=== PATIENT | female | born 1935 | race Hispanic/Latino ===

== ENCOUNTER 2017-11-17 10:30 | Inpatient (IN) | payer OTHER ==
[~2017-11-17] VITALS: Ht 157.5 cm; Wt 52.2 kg
[2017-11-17 11:08] LABS: BASOPHILS % (AUTO) 0.8 % (0.0-5.0); EOSINOPHILS % (AUTO) 1.3 % (0.0-8.0); HEMATOCRIT 45.2 % (36-48); LYMPHOCYTES % (AUTO) 20.1 % (21.0-51.0); MEAN CORPUSCULAR HEMOGLOBIN 31.5 pg (27.0-33.0); MEAN CORPUSCULAR HGB CONC 33.3 g/dL (32.0-36.0); MEAN CORPUSCULAR VOLUME 94.6 fL (79-99); MONOCYTES % (AUTO) 8.5 % (3.0-13.0); NEUTROPHILS % (AUTO) 69.3 % (40.0-77.0); PLATELET COUNT (AUTO) 255 K/uL (130-400); RED BLOOD CELL COUNT(AUTO) 4.77 MIL/uL (4.00-5.50); RED CELL DISTRIBUTION WIDTH 13.1 % (11.0-15.5); WHITE BLOOD COUNT (AUTO) 10.4 K/uL (4.8-10.8)
[2017-11-17] MEDS ORDERED: KETOROLAC TROMETHAMINE 30MG/ML ONE (11:08)
[2017-11-17] MEDS ORDERED: ONDANSETRON HCL 4 MG/2 ML VIAL ONE (11:08)
[2017-11-17] MEDS ORDERED: MECLIZINE HCL 25 MG TABLET ONE (11:08)
[2017-11-17 11:18] LABS: CREATININE 0.8 mg/dL (0.5-1.5)
[2017-11-17 11:23] LABS: INR 0.94 (0.85-1.15); PROTHROMBIN TIME 9.9 SEC (9.6-11.6)
[2017-11-17 11:29] LABS: ALBUMIN 3.8 g/dL (3.5-5.0); BILIRUBIN,TOTAL 0.8 mg/dL (0.2-1.0); TOTAL PROTEIN, SERUM 8.7 g/dL (6.0-8.3)
[2017-11-17] MEDS ORDERED: SODIUM CHLORIDE 0.9% 50 ML IV ONE (12:22)
[2017-11-17] MEDS ORDERED: CEFTRIAXONE SODIUM 2 GM VIAL ONE (12:22)
[2017-11-17] MEDS ORDERED: SODIUM CHLORIDE 0.9% 1000ML 1,000 ML IV ONE (12:22)
[2017-11-17] MEDS ORDERED: ONDANSETRON ODT 4 MG TAB ONE ×2 (12:36→12:37)
[2017-11-17] MEDS ORDERED: MORPHINE SULFATE 4 MG/1ML SYG IV PRN (14:45)
[2017-11-17] MEDS ORDERED: ACETAMINOPHEN 325 MG TAB PO PRN (14:45)
[2017-11-17] MEDS ORDERED: MORPHINE SULFATE 2 MG/ML 1ML SYG IV PRN (14:45)
[2017-11-17] MEDS ORDERED: ONDANSETRON HCL 4 MG/2 ML VIAL IV PRN (14:45)
[2017-11-17 16:00] VITALS: BP 140/58
[2017-11-17] MEDS: SODIUM CHLORIDE 0.9% 1000ML 1,000 ML IV SCH (17:00)
[2017-11-17] MEDS ORDERED: LEVOFLOXACIN 500 MG/D5W 100 ML 100 ML IV SCH (19:00)
[2017-11-17 20:00] VITALS: BP 153/79
[2017-11-17] MEDS ORDERED: METRONIDAZOLE 500MG/100ML BAG 100 ML ONE (20:56)
[2017-11-17] MEDS: METRONIDAZOLE 500MG/100ML BAG 100 ML IV SCH (22:19)
[2017-11-17] MEDS: ZOSYN 3.375GM+NS 50ML 50 ML IV SCH (23:15)
[2017-11-18 00:38] VITALS: BP 117/70
[2017-11-18 04:14] VITALS: BP 153/77
[2017-11-18] MEDS: SODIUM CHLORIDE 0.9% 1000ML 1,000 ML IV SCH ×2 (04:44→15:50)
[2017-11-18] MEDS: METRONIDAZOLE 500MG/100ML BAG 100 ML IV SCH (05:30)
[2017-11-18 05:57] LABS: BASOPHILS % (AUTO) 1.1 % (0.0-5.0); EOSINOPHILS % (AUTO) 3.6 % (0.0-8.0); HEMATOCRIT 37.1 % (36-48); LYMPHOCYTES % (AUTO) 17.6 % (21.0-51.0); MEAN CORPUSCULAR HGB CONC 32.7 g/dL (32.0-36.0); MEAN CORPUSCULAR VOLUME 94.9 fL (79-99); MONOCYTES % (AUTO) 10.2 % (3.0-13.0); NEUTROPHILS % (AUTO) 67.5 % (40.0-77.0); PLATELET COUNT (AUTO) 225 K/uL (130-400); RED CELL DISTRIBUTION WIDTH 13.3 % (11.0-15.5)
[2017-11-18] MEDS: ZOSYN 3.375GM+NS 50ML 50 ML IV SCH ×2 (06:12→13:00)
[2017-11-18 06:15] LABS: ALBUMIN 2.5 g/dL (3.5-5.0); BILIRUBIN,TOTAL 0.5 mg/dL (0.2-1.0); CREATININE 0.8 mg/dL (0.5-1.5); POTASSIUM 3.8 mmol/L (3.5-5.1); TOTAL PROTEIN, SERUM 6.3 g/dL (6.0-8.3)
[2017-11-18 08:21] VITALS: BP 143/75
[2017-11-18] MEDS ORDERED: ENOXAPARIN SODIUM 40 MG/0.4 ML SYRINGE SQ SCH (09:00)
[2017-11-18] MEDS ORDERED: PANTOPRAZOLE SODIUM 40 MG TABLET.DR PO SCH (09:00)
[2017-11-18] MEDS ORDERED: METRONIDAZOLE 500 MG TABLET PO SCH (11:15)
[2017-11-18 12:30] VITALS: BP 156/70
[2017-11-18 13:02] VITALS: BP 152/59
[2017-11-18] MEDS ORDERED: PANT40TA PO (16:57)
[2017-11-18] MEDS ORDERED: LEVO250T59 PO (16:57)
[2017-11-18] MEDS ORDERED: METR250T4 PO (16:57)
[2017-11-18 17:05] VITALS: BP 137/63
[2017-11-19] MEDS ORDERED: LEVOFLOXACIN 500 MG TABLET PO SCH (09:00)
== END 2017-11-18 20:03 | disposition home or self-care (01) | DRG 392 ==
LOC: EDH 10:30 → EDHIP 14:03 → 3AH 15:29
PROVIDERS: ADMIT Internal Medicine; ATTEND Internal Medicine
PROC: 3E0234Z Introduction of Serum, Toxoid and Vaccine into Muscle, Percutaneous Approach (ICD-10-PCS; principal; 2017-11-17)
DX: K57.32 Diverticulitis of large intestine without perforation or abscess without bleeding (principal); Z23 Encounter for immunization; Z82.5 Family history of asthma and other chronic lower respiratory diseases; Z82.3 Family history of stroke; Z83.3 Family history of diabetes mellitus; Z82.49 Family history of ischemic heart disease and other diseases of the circulatory system
CPT/HCPCS: 36415; 70450; 71045; 74176; 80053; 82550; 83874; 84484; 85025; 85610; 85730; 87040; 93005; C9113; G0008; J0696; J1650; J1885; J1956; J2405; J2543; J3490; J7030; Q2038

== ENCOUNTER 2019-09-27 23:07 | Emergency (ER) | payer MEDICARE, OTHER ==
[~2019-09-27 23:07] MED LIST: LEVO250T59 PO; METR-152 PO; PANT40TA PO
[2019-09-28 00:34] LABS: BASOPHILS % (AUTO) 0.8 % (0.0-5.0); EOSINOPHILS % (AUTO) 0.5 % (0.0-8.0); HEMATOCRIT 45.3 % (36-48); LYMPHOCYTES % (AUTO) 11.7 % (21.0-51.0); MEAN CORPUSCULAR HEMOGLOBIN 31.6 pg (27.0-33.0); MEAN CORPUSCULAR HGB CONC 33.6 g/dL (32.0-36.0); MEAN CORPUSCULAR VOLUME 94.2 fL (79-99); MONOCYTES % (AUTO) 6.1 % (3.0-13.0); NEUTROPHILS % (AUTO) 80.4 % (40.0-77.0); PLATELET COUNT (AUTO) 256 K/uL (130-400); RED BLOOD CELL COUNT(AUTO) 4.81 MIL/uL (4.00-5.50); RED CELL DISTRIBUTION WIDTH 13.6 % (11.0-15.5); WHITE BLOOD COUNT (AUTO) 13.2 K/uL (4.8-10.8)
[2019-09-28 01:04] LABS: CREATININE 0.9 mg/dL (0.5-1.5); POTASSIUM 4.2 mmol/L (3.5-5.1)
[2019-09-28 01:05] LABS: APPEARANCE,URINE Clear (CLEAR); BILIRUBIN,URINE Negative (NEGATIVE); COLOR,URINE Yellow (YELLOW); GLUCOSE, URINE (UA) Negative (NEGATIVE); KETONES,URINE 15 mg/dL (NEGATIVE); LEUKOCYTE ESTERASE ,URINE Negative (NEGATIVE); NITRATE,URINE Negative (NEGATIVE); OCCULT BLOOD,URINE Negative (NEGATIVE); PROTEIN,URINE Negative (NEGATIVE); UROBILINOGEN,URINE 0.2 mg/dL (0.2-1.0)
[2019-09-28 01:08] LABS: ALBUMIN 4.1 g/dL (3.5-5.0); BILIRUBIN,TOTAL 0.9 mg/dL (0.2-1.0); TOTAL PROTEIN, SERUM 7.6 g/dL (6.0-8.3)
[2019-09-28 01:17] LABS: INR 0.92 (0.85-1.15); PARTIAL THROMBOPLASTIN TIME 26.6 SEC (26.3-35.5)
== END 2019-09-28 01:33 | disposition home or self-care (01) ==
LOC: EDH 23:07
DX: S00.83XA Contusion of other part of head, initial encounter (principal); S09.90XA Unspecified injury of head, initial encounter; Z98.890 Other specified postprocedural states; Z72.0 Tobacco use; W18.39XA Other fall on same level, initial encounter; Y93.89 Activity, other specified; Y92.89 Other specified places as the place of occurrence of the external cause; Y99.8 Other external cause status
CPT/HCPCS: 36415; 70450; 71100; 72125; 80053; 81003; 84484; 85025; 85610; 85730; 93005

== ENCOUNTER 2022-05-26 09:59 | Emergency (ER) | payer OTHER ==
[~2022-05-26] VITALS: Ht 154.9 cm; Wt 45.4 kg
[~2022-05-26 09:59] MED LIST changes: -LEVO250T59 PO; +LEVO250T75 PO; -METR-152 PO; +METR-361 PO
[2022-05-26 10:36] LABS: BASOPHILS % (AUTO) 1.9 % (0.0-5.0); EOSINOPHILS % (AUTO) 7.3 % (0.0-8.0); HEMATOCRIT 40.7 % (36-48); LYMPHOCYTES % (AUTO) 25.4 % (21.0-51.0); MEAN CORPUSCULAR HEMOGLOBIN 31.4 pg (27.0-33.0); MEAN CORPUSCULAR HGB CONC 32.7 g/dL (32.0-36.0); MONOCYTES % (AUTO) 7.9 % (3.0-13.0); PLATELET COUNT (AUTO) 252 K/uL (130-400); RED BLOOD CELL COUNT(AUTO) 4.24 MIL/uL (4.00-5.50); RED CELL DISTRIBUTION WIDTH 13.9 % (11.0-15.5); WHITE BLOOD COUNT (AUTO) 6.4 K/uL (4.8-10.8)
[2022-05-26 10:58] LABS: CREATININE 0.9 mg/dL (0.5-1.5); POTASSIUM 4.1 mmol/L (3.5-5.1)
[2022-05-26 11:02] LABS: ALBUMIN 3.6 g/dL (3.5-5.0); MAGNESIUM 2.2 mg/dL (1.80-2.40)
[2022-05-26] MEDS ORDERED: MECLIZINE HCL 25 MG TABLET PO ONE (12:00)
[2022-05-26 13:23] LABS: APPEARANCE,URINE CLEAR (CLEAR); BILIRUBIN,URINE NEGATIVE (NEGATIVE); COLOR,URINE LIGHT-YELLOW (YELLOW); GLUCOSE, URINE (UA) NEGATIVE (NEGATIVE); KETONES,URINE NEGATIVE (NEGATIVE); LEUKOCYTE ESTERASE ,URINE NEGATIVE Leu/uL (NEGATIVE); NITRATE,URINE NEGATIVE (NEGATIVE); OCCULT BLOOD,URINE NEGATIVE (NEGATIVE); PROTEIN,URINE NEGATIVE (NEGATIVE); UROBILINOGEN,URINE 0.2 mg/dL (0.2-1.0)
[2022-05-26 15:32] VITALS: BP 148/52
[2022-05-26] MEDS ORDERED: MECL-160 PO (16:27)
== END 2022-05-26 16:39 | disposition home or self-care (01) ==
LOC: EDH 09:59
DX: R42 Dizziness and giddiness (principal); F17.200 Nicotine dependence, unspecified, uncomplicated; Z79.899 Other long term (current) drug therapy
CPT/HCPCS: 36415; 70450; 71045; 80053; 81003; 83735; 83880; 84484; 85025; 93005